=== PATIENT | female | born 1985 | race African-American/Black ===

== ENCOUNTER 2024-05-01 09:43 | Emergency (ER) | payer MEDICAID ==
[~2024-05-01] VITALS: Ht 170.2 cm; Wt 104.0 kg
[2024-05-01] MEDS: PREDNISONE 20MG TABLET PO STA (10:42)
[2024-05-01 10:45] VITALS: PULSE 84; RESP 20
[2024-05-01 10:45] LABS: HEMOGLOBIN. 9.2 g/dL (12.0-16.0); MEAN CORPUSCULAR HEMOGLOBIN 22.1 pg (28.0-32.0); MEAN CORPUSCULAR HGB CONC 30.7 g/dL (31.0-37.0); MEAN CORPUSCULAR VOLUME 71.9 fL (81.0-99.0); MEAN PLATELET VOLUME 8.8 fl (7.4-10.4); PLATELET 340 x1000/uL (130-400); RED BLOOD CELL COUNT 4.18 mill/uL (4.2-5.4); RED CELL DISTRIBUTION WIDTH 18.6 % (11.6-14.6); WHITE BLOOD COUNT 6.2 x1000/uL (4.5-11.0)
[2024-05-01] MEDS: IPRATROPIUM BROMIDE (0.02%) 0.5MG/2.5ML NEB HHN STA (10:46)
[2024-05-01] MEDS: ALBUTEROL (0.083%) 2.5MG/3ML NEB HHN STA (10:46)
[2024-05-01 11:11] LABS: CHLORIDE 109 mEq/L (98-107); SODIUM 141 mEq/L (136-145)
[2024-05-01 11:12] LABS: CARBON DIOXIDE 24 mEq/L (21-32)
[2024-05-01 11:13] LABS: CALCIUM 8.8 mg/dL (8.7-10.4)
[2024-05-01 11:17] LABS: CREATININE 0.9 mg/dL (0.6-1.0); GLUCOSE 101 mg/dL (70-105); UREA NITROGEN BLOOD 10 mg/dL (9-23)
[2024-05-01 11:38] LABS: DIFFERENTIAL COMMENT 1
[2024-05-01] MEDS ORDERED: P20 PO (11:41)
[2024-05-01 12:27] VITALS: PULSE 80; RESP 21; O2SAT 97
[2024-05-01] MEDS: ALBUTEROL (0.5%) 2.5MG/0.5ML NEB HHN ONE (12:27)
[2024-05-01 12:34] VITALS: BP 135/82; PULSE 78; RESP 19; TEMP 36.94740; O2SAT 97
[2024-05-01 16:46] LABS: ANISOCYTOSIS 1+; HYPOCHROMASIA 1+; MICROCYTOSIS 2+; PLATELET ESTIMATE NORMAL
== END 2024-05-01 12:35 | disposition home or self-care (01) ==
LOC: ER 09:55
DX: J45.909 Unspecified asthma, uncomplicated (principal); R05.9 Cough, unspecified; Z79.52 Long term (current) use of systemic steroids
CPT/HCPCS: 80048; 85025; 36415; 71045; 94640; 93005; 94070; 98960; 99285; J7512; Z7610 ×3; 94664

== ENCOUNTER 2024-07-01 13:49 | Emergency (ER) | payer MEDICAID ==
[~2024-07-01] VITALS: Ht 170.2 cm; Wt 127.0 kg
[~2024-07-01 13:49] MED LIST: P20 PO
[2024-07-01 14:01] VITALS: O2SAT 99
[2024-07-01 14:04] VITALS: BP 156/106; TEMP 36.8
[2024-07-01] MEDS ORDERED: EPIN0.3P3 IM (14:57)
[2024-07-01] MEDS: PREDNISONE 20MG TABLET PO STA (15:10)
[2024-07-01] MEDS: DIPHENHYDRAMINE 50MG CAPSULE PO ONE (15:10)
[2024-07-01] MEDS: FAMOTIDINE 20MG TABLET PO ONE (15:10)
[2024-07-01 15:13] VITALS: PULSE 65; RESP 18; O2SAT 95
[2024-07-01] MEDS: IPRATROPIUM BROMIDE (0.02%) 0.5MG/2.5ML NEB HHN STA (15:13)
[2024-07-01] MEDS: ALBUTEROL (0.083%) 2.5MG/3ML NEB HHN STA (15:13)
[2024-07-01] MEDS ORDERED: P20 MT (17:02)
== END 2024-07-01 20:35 | disposition home or self-care (01) ==
LOC: ER 13:49
DX: T78.40XA Allergy, unspecified, initial encounter (principal); J45.901 Unspecified asthma with (acute) exacerbation; Z79.52 Long term (current) use of systemic steroids; Z88.6 Allergy status to analgesic agent; Y92.89 Other specified places as the place of occurrence of the external cause
CPT/HCPCS: 94644; 99285; Q0163; J7512; Z7610; 94070; 94640

== ENCOUNTER 2025-03-18 02:57 | Emergency (ER) | payer MEDICAID ==
[~2025-03-18] VITALS: Ht 170.2 cm; Wt 136.0 kg
[~2025-03-18 02:57] MED LIST changes: +EPIN0.3P3 IM; +P20 MT
[2025-03-18 03:40] VITALS: TEMP 36.9
[2025-03-18] MEDS: IPRATROPIUM BROMIDE (0.02%) 0.5MG/2.5ML NEB HHN SCH (04:36)
[2025-03-18 04:37] VITALS: PULSE 75; RESP 20; O2SAT 99
[2025-03-18] MEDS: ALBUTEROL (0.083%) 2.5MG/3ML NEB HHN SCH (04:37)
[2025-03-18 04:52] VITALS: PULSE 66; RESP 22; O2SAT 99
[2025-03-18 04:55] LABS: CLARITY URINE CLEAR (CLEAR); COLOR URINE YELLOW (YELLOW); GLUCOSE URINE NEGATIVE (NEGATIVE); KETONES URINE NEGATIVE (NEGATIVE); LEUKOCYTE ESTERASE URINE NEGATIVE (NEGATIVE); NITRITE URINE NEGATIVE (NEGATIVE); OCCULT BLOOD URINE TRACE (NEGATIVE); PH URINE 7.0 (4.5-8.0); PROTEIN URINE NEGATIVE (NEGATIVE); SPECIFIC GRAVITY URINE 1.008 (1.005-1.030); UROBILINOGEN URINE 0.2 E.U./dL (0.2-1.0)
[2025-03-18 04:56] LABS: CREATININE 0.8 mg/dL (0.6-1.0); UREA NITROGEN BLOOD 9 mg/dL (9-23)
[2025-03-18 05:00] LABS: HEMATOCRIT. 32.7 % (36.0-48.0); HEMOGLOBIN. 9.8 g/dL (12.0-16.0); MEAN PLATELET VOLUME 9.2 fl (7.4-10.4); PLATELET 329 x1000/uL (130-400); RED BLOOD CELL COUNT 4.26 mill/uL (4.2-5.4); RED CELL DISTRIBUTION WIDTH 19.1 % (11.6-14.6)
[2025-03-18 05:07] VITALS: PULSE 69; RESP 22; O2SAT 99
[2025-03-18 05:13] LABS: HCG SCREEN NEGATIVE
[2025-03-18 05:30] VITALS: PULSE 81; RESP 20; O2SAT 99
[2025-03-18] MEDS: IPRATROPIUM/ALBUTEROL 0.5-3(2.5)MG/3ML NEB HHN ONE (05:30)
[2025-03-18] MEDS: DEXAMETHASONE 4MG TABLET PO ONE (05:33)
[2025-03-18] MEDS ORDERED: IPRA3AMP9 NEB (05:53)
[2025-03-18] MEDS ORDERED: NYST15PO13 TP (06:10)
[2025-03-18 06:23] VITALS: BP 155/75; PULSE 46; RESP 14; O2SAT 99
[2025-03-18 06:46] LABS: BACTERIA URINE TRACE; RBC URINE NONE SEEN /hpf (0-2); SQUAMOUS EPITHELIAL CELL URINE 1+ /lpf (RARE/1+); WBC URINE 0-2 /hpf (0-2)
[2025-03-18 07:08] LABS: EOSINOPHILS % MANUAL 2.0 % (0.0-5.0); LYMPHOCYTES % MANUAL 17.0 % (20.0-60.0); MONOCYTES % MANUAL 4.0 % (2.0-8.0); NEUTROPHILS % MANUAL 77.0 % (45.0-75.0); PLATELET ESTIMATE NORMAL
== END 2025-03-18 06:24 | disposition home or self-care (01) ==
LOC: ER 02:57 → CMPBEDREQ 08:57
DX: J45.901 Unspecified asthma with (acute) exacerbation (principal); J31.0 Chronic rhinitis; Z88.6 Allergy status to analgesic agent
CPT/HCPCS: 80048; 81003; 84703; 85025; 36415; 71045; 94640; 99291; J8540; Z7610 ×4; 94070

== ENCOUNTER 2025-03-28 11:31 | Emergency (ER) | payer MEDICAID ==
[~2025-03-28] VITALS: Ht 170.2 cm; Wt 127.0 kg
[~2025-03-28 11:31] MED LIST changes: +IPRA3AMP9 NEB; +NYST15PO13 TP
[2025-03-28 11:34] VITALS: O2SAT 98
[2025-03-28] MEDS: DEXAMETHASONE 4MG TABLET PO ONE (11:48)
[2025-03-28 12:05] VITALS: PULSE 104; RESP 22
[2025-03-28] MEDS: ALBUTEROL (0.083%) 2.5MG/3ML NEB HHN SCH (12:05)
[2025-03-28] MEDS: IPRATROPIUM BROMIDE (0.02%) 0.5MG/2.5ML NEB HHN SCH (12:05)
[2025-03-28 12:19] LABS: BASOPHILS % 0.7 % (0.0-2.0); EOSINOPHILS % 5.8 % (0.0-5.0); HEMATOCRIT. 32.2 % (36.0-48.0); HEMOGLOBIN. 10.0 g/dL (12.0-16.0); LYMPHOCYTES % 28.8 % (20.0-50.0); MEAN PLATELET VOLUME 8.7 fl (7.4-10.4); MONOCYTES % 6.3 % (2.0-8.0); NEUTROPHILS % 58.4 % (40.0-76.0); PLATELET 276 x1000/uL (130-400); RED BLOOD CELL COUNT 4.20 mill/uL (4.2-5.4); RED CELL DISTRIBUTION WIDTH 19.0 % (11.6-14.6)
[2025-03-28 12:27] LABS: CREATININE 0.8 mg/dL (0.6-1.0)
[2025-03-28 12:28] LABS: UREA NITROGEN BLOOD 7 mg/dL (9-23)
[2025-03-28] MEDS ORDERED: AZIT250T12 MT (12:40)
[2025-03-28] MEDS ORDERED: IPRA3AMP9 NEB (12:48)
[2025-03-28 13:22] VITALS: BP 120/78; PULSE 75; RESP 16; TEMP 36.9; O2SAT 100
== END 2025-03-28 13:26 | disposition home or self-care (01) ==
LOC: ER 11:31
DX: J40 Bronchitis, not specified as acute or chronic (principal); Z88.0 Allergy status to penicillin; Z88.6 Allergy status to analgesic agent
CPT/HCPCS: 80048; 85025; 36415; 71045; 94640; 93005; 99285; J8540; Z7610 ×3; 94070

== ENCOUNTER 2025-04-10 12:47 | Emergency (ER) | payer MEDICAID ==
[~2025-04-10] VITALS: Ht 170.2 cm; Wt 135.0 kg
[~2025-04-10 12:47] MED LIST changes: +AZIT250T12 MT
[2025-04-10] MEDS: DEXAMETHASONE 4MG TABLET PO ONE (14:41)
[2025-04-10] MEDS: ACETAMINOPHEN 500MG TABLET PO ONE (14:41)
[2025-04-10] MEDS: IPRATROPIUM BROMIDE (0.02%) 0.5MG/2.5ML NEB HHN SCH (14:47)
[2025-04-10 14:50] VITALS: PULSE 95; RESP 20; O2SAT 100
[2025-04-10] MEDS: ALBUTEROL (0.083%) 2.5MG/3ML NEB HHN SCH (14:51)
[2025-04-10 14:59] LABS: CLARITY URINE CLEAR (CLEAR); COLOR URINE YELLOW (YELLOW); GLUCOSE URINE NEGATIVE (NEGATIVE); KETONES URINE NEGATIVE (NEGATIVE); LEUKOCYTE ESTERASE URINE NEGATIVE (NEGATIVE); NITRITE URINE NEGATIVE (NEGATIVE); OCCULT BLOOD URINE NEGATIVE (NEGATIVE); PH URINE 5.5 (4.5-8.0); PROTEIN URINE NEGATIVE (NEGATIVE); SPECIFIC GRAVITY URINE 1.009 (1.005-1.030); UROBILINOGEN URINE 0.2 E.U./dL (0.2-1.0)
[2025-04-10 15:07] LABS: HEMATOCRIT. 33.5 % (36.0-48.0); HEMOGLOBIN. 10.4 g/dL (12.0-16.0); MEAN PLATELET VOLUME 9.0 fl (7.4-10.4); PLATELET 251 x1000/uL (130-400); RED BLOOD CELL COUNT 4.30 mill/uL (4.2-5.4); RED CELL DISTRIBUTION WIDTH 19.4 % (11.6-14.6)
[2025-04-10 15:21] LABS: CREATININE 0.9 mg/dL (0.6-1.0); UREA NITROGEN BLOOD 7 mg/dL (9-23)
[2025-04-10 15:26] LABS: HCG SCREEN NEGATIVE
[2025-04-10 16:12] LABS: INFLUENZA TYPE A Presumptive Negative (Pres. Neg.); INFLUENZA TYPE B Presumptive Negative (Pres. Neg.)
[2025-04-10 16:13] LABS: RESPIRATORY SYNCYTIAL VIRUS Not Detected (Not Detectd)
[2025-04-10 17:39] LABS: LYMPHOCYTES % MANUAL 3.0 % (20.0-60.0); MONOCYTES % MANUAL 4.0 % (2.0-8.0); NEUTROPHILS % MANUAL 93.0 % (45.0-75.0)
[2025-04-10 17:40] LABS: PLATELET ESTIMATE NORMAL
[2025-04-10] MEDS ORDERED: TOPUD PO (20:04)
[2025-04-10] MEDS ORDERED: P50 MT (20:04)
[2025-04-10 20:31] LABS: INFLUENZA TYPE A Presumptive Negative (Pres. Neg.); INFLUENZA TYPE B Presumptive Negative (Pres. Neg.)
[2025-04-10 20:32] LABS: RESPIRATORY SYNCYTIAL VIRUS Not Detected (Not Detectd)
[2025-04-10 20:48] VITALS: BP 156/79; PULSE 91; RESP 12; TEMP 37.1; O2SAT 100
[2025-04-16] MEDS ORDERED: AZIT250T12 MT (14:48)
[2025-04-16] MEDS ORDERED: ACET-2708 MT (14:48)
== END 2025-04-10 20:49 | disposition home or self-care (01) ==
LOC: ER 12:47
DX: J45.901 Unspecified asthma with (acute) exacerbation (principal); E66.01 Morbid (severe) obesity due to excess calories; Z88.0 Allergy status to penicillin; Z88.6 Allergy status to analgesic agent
CPT/HCPCS: 80048; 81003; 84703; 85025; 87420; 87804 ×2; 36415; 71045; 94640; 99285; 87426; J8540; Z7610 ×3; 94070; 94664